=== PATIENT | female | born 1985 | race Caucasian/White ===

== ENCOUNTER 2021-04-06 11:03 | Emergency (ER) | payer OTHER ==
[~2021-04-06] VITALS: Ht 165.1 cm; Wt 81.7 kg
[~2021-04-06 11:03] MED LIST: CIPROFLOXACIN500 M1 PO
[2021-04-06] MEDS ORDERED: METFORMIN HCL500 M3 PO (11:20)
[2021-04-06] MEDS ORDERED: NEURONTIN 300M300 M2 PO (11:20)
[2021-04-06] MEDS ORDERED: HYDROCODON-ACE1 EAC7 PO (13:04)
[2021-04-06 13:28] VITALS: BP 152/79
== END 2021-04-06 13:28 | disposition home or self-care (01) ==
LOC: ER 11:03
DX: E11.42 Type 2 diabetes mellitus with diabetic polyneuropathy (principal); Z90.49 Acquired absence of other specified parts of digestive tract; Z79.899 Other long term (current) drug therapy